=== PATIENT | female | born 1950 | race Two or more races ===

== ENCOUNTER 2020-06-12 09:42 | Emergency (ER) | payer MEDICAID, OTHER ==
[~2020-06-12] VITALS: Ht 157.5 cm; Wt 113.4 kg
[2020-06-12] MEDS ORDERED: EPINEPHrine HCL 1 MG/10 ML SYRG IV ONE (09:43)
[2020-06-12] MEDS ORDERED: SODIUM BICARBONATE 8.4% INJ 50ML SYRINGE IV ONE ×2 (09:43)
[2020-06-12] MEDS ORDERED: CALCIUM CHLOR(10%) 100MG/ML 10ML SYRINGE IV ONE (09:43)
== END 2020-06-12 15:44 ==
LOC: ER 09:42
DX: I46.9 Cardiac arrest, cause unspecified (principal); J96.90 Respiratory failure, unspecified, unspecified whether with hypoxia or hypercapnia; R41.82 Altered mental status, unspecified; N18.6 End stage renal disease
CPT/HCPCS: 82962; 92950; 99285; J0171